=== PATIENT | male | born 1990 | race African-American/Black ===

== ENCOUNTER 2020-03-16 06:44 | Inpatient (IN) ==
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
[~2020-03-16 06:44] MED LIST: BUPIVACAINE 0.5 % 5 MG/1 ML MPF 30ML VIAL ONE; CEFAZOLIN 2000MG 2,000 MG/15 ML SYR IV SCH; LACTATED RINGER'S 1,000 ML IV SCH
[2020-03-16] MEDS ORDERED: MIDAZOLAM HCL 1 MG/ML 2ML VIAL ONE ×2 (09:17→10:00)
[2020-03-16] MEDS ORDERED: LIDOCAINE HCL 2% 2 ML VIAL/AMP(20MG/ML) INFIL ONE (09:17)
[2020-03-16] MEDS ORDERED: fentaNYL citrate 100 MCG/2 ML VIAL ONE ×4 (09:17→11:33)
[2020-03-16] MEDS ORDERED: PROPOFOL IV EMULSION 10 MG/ML 20 ML VIAL IV ONE (09:17)
[2020-03-16] MEDS ORDERED: ONDANSETRON INJ 2 MG/ML 2 ML VIAL ONE (09:17)
[2020-03-16] MEDS ORDERED: BUPIVACAINE 0.5 % 5 MG/1 ML MPF 30ML VIAL ONE (10:18)
[2020-03-16] MEDS ORDERED: LIDOCAINE HCL 1% 20 ML VIAL ONE (10:19)
[2020-03-16] MEDS ORDERED: BACITRACIN INJ 50,000 UNIT VIAL ONE ×2 (10:19→11:19)
[2020-03-16] MEDS ORDERED: GENTAMICIN SULFATE 40 MG/ML 2 ML VIAL ONE (10:22)
[2020-03-16] MEDS ORDERED: VANCOMYCIN HCL 1000MG/20ML VIAL ONE (10:23)
--- NOTE | 2020-03-16 10:26 | History & Physical Bridge Note ---
Date of Service March 16, 2020 History & Physical Bridge Note I have examined the patient, reviewed the History & Physical and in the interval since the performance of the History & Physical I have noted the following changes of clinical significance: no changes noted
[2020-03-16] MEDS ORDERED: METOCLOPRAMIDE HCL INJ 5 MG/ML 2 ML VIAL IV PRN ×2 (10:27→13:22)
[2020-03-16] MEDS ORDERED: ONDANSETRON INJ 2 MG/ML 2 ML VIAL IV PRN ×2 (10:27→13:22)
[2020-03-16] MEDS ORDERED: HYDROmorphone INJ 2 MG/ML SYR/VIAL IV PRN (10:27)
[2020-03-16] MEDS ORDERED: ATROPINE SULFATE 0.1 MG/ML 10ML SYR IV PRN (10:27)
[2020-03-16] MEDS ORDERED: ePHEDrine sulfate 50 MG/ML AMP IV PRN (10:27)
[2020-03-16] MEDS ORDERED: PROMETHAZINE HCL 12.5 MG in SODIUM CHLORIDE 0.9% 50 ML IV PRN (10:27)
[2020-03-16] MEDS ORDERED: TRANEXAMIC ACID / 0.7% NACL 1000MG/100ML BAG IV ONE (12:29)
--- NOTE | 2020-03-16 12:51 | Fluoroscopy Report ---
FL tibia/fibula RT 2V CLINICAL HISTORY: RIGHT TIB FIB HARDWARE REMOVAL COMPARISON STUDY: 02/09/2020 FLUOROSCOPY TIME: 4 seconds. NUMBER OF FLUOROSCOPIC IMAGES: 3 FINDINGS: There is been interval removal of the tibial plate and screws. There are multiple metallic fragments projected over the proximal tibia fibula likely representing trapped of fragments. IMPRESSION: Interval removal of the tibial hardware. ACT 112: Negative or not required by law. Electronically signed by: Manolo Chaudhry M.D. 03/16/2020 12:49 PM
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
[2020-03-16] MEDS ORDERED: DiphenhydrAMINE HCL 50 MG/ML VIAL IV PRN (13:22)
[2020-03-16] MEDS ORDERED: NALOXONE HCL 0.4 MG/1 ML VIAL/CARP IV PRN (13:22)
[2020-03-16] MEDS ORDERED: TAMSULOSIN HCL 0.4 MG CAP PO PRN (13:22)
[2020-03-16] MEDS ORDERED: MAGNESIUM HYDROXIDE SUSP 30 ML UDC PO PRN (13:22)
[2020-03-16] MEDS ORDERED: VANCOMYCIN CONSULT ACTIVE PRN ×2 (13:22→15:51)
[2020-03-16] MEDS ORDERED: bisacodyL 10 MG SUPP PR PRN (13:22)
--- NOTE | 2020-03-16 13:22 | Operative Report ---
Post Operative Report Pre & Post Diagnosis Operation Date: 03/16/20 08:50 Pre-Op Diagnosis: Right Tibia Osteomyelitis Post-Op Diagnosis: Right Tibia Osteomyelitis I identified the patient and participated in the time-out.: Yes Procedure Operation Date: 03/16/20 08:50 Actual Procedures p Right Tibia Hardware Removal(Right) - Alvin Cardoza MD s Irrigation and Debridement, Application of Stimulan Beads(Right) - Alvin Cardoza MD Surgeon Alvin Cardoza M.D. Shuttleless Loom Weaver Priscila Dumont PA-C and Fernando Covarrubias, geovanna fellow available Estimated Blood Loss 25 Findings Consistent with Post-Op Diagnosis Specimens Soft tissue; hardware Drains None Anesthesia Type General Regional Complications none Description of Procedure Patient was taken to the operating room, placed under general anesthesia. given peripheral nerve block prior to procedure. Time out performed, prepped and draped in routine sterile fashion. I was present during the entire case, please see Dr. Cardoza's operative report for further detail. I assisted with positioning, tissue retraction, hardware removal, closure and dressings. Patient was awakened and taken to the recovery room in stable condition. I attest to the content of the Intraoperative Record and any orders documented therein. Any exceptions are noted below.
[2020-03-16] MEDS: fentaNYL citrate 100 MCG/2 ML VIAL IV PRN ×2 (13:51→14:00)
--- NOTE | 2020-03-16 14:20 | Anesthesiology Progress Note ---
Date of Service March 16, 2020 Anesthesia Post Procedure Vital Signs Vital Signs: Temp Pulse Resp BP BP Pulse Ox 03/16/20 14:15 61 16 161/94 H 98 03/16/20 14:05 65 16 180/86 H 100 03/16/20 13:55 36.7 C 52 L 16 168/87 H 100 03/16/20 13:45 72 16 159/105 H 100 03/16/20 13:35 82 16 155/92 H 100 03/16/20 13:25 65 16 129/80 100 03/16/20 13:19 36.4 C L 67 16 138/92 100 03/16/20 07:57 70 20 151/98 H 99 03/16/20 07:16 36.9 C 62 16 152/90 H 99 Pain Intensity Right Knee: Pain Intensity: 7 Transfer of Care Handoff Completed per policy Notes Mental Status: alert / awake / arousable and participated in evaluation Patient Amnestic to Procedure: Yes Nausea / Vomiting: adequately controlled Pain: adequately controlled Airway Patency, RR, SpO2: stable & adequate BP & HR: stable & adequate Hydration State: stable & adequate Anesthetic Complications: no major complications apparent
[2020-03-16] MEDS: SODIUM CHLORIDE 0.9% 1000ML 1,000 ML IV SCH ×2 (15:05→23:53)
[2020-03-16] MEDS ORDERED: PIPERACILLIN/TAZOBACTAM 3.375 GM in DEXTROSE 5% 100 ML IV ONE (15:45)
[2020-03-16] MEDS ORDERED: VANCOMYCIN HCL 1,250 MG in SODIUM CHLORIDE 0.9% 250 ML IV STA (15:49)
[2020-03-16] MEDS ORDERED: PIPERACILL/TAZOBAC CONSULT ACTIVE PRN (15:51)
[2020-03-16] MEDS: ACETAMINOPHEN 500 MG TAB PO SCH ×2 (16:05→23:54)
[2020-03-16] MEDS: OXYCODONE HCL IR 5 MG TAB (IMMEDIATE RELEASE) PO PRN ×2 (16:07→20:39)
[2020-03-16 16:15] LABS: Creatinine Clr Calc Pharmacy 87.1 ml/min; Est GFR (African American) 82.1; Est GFR (Non-African American) 70.8
[2020-03-16] MEDS: HYDROmorphone INJ 0.5 MG/0.5 ML SYR IV PRN ×2 (16:24→23:59)
--- NOTE | 2020-03-16 16:41 | Pharmacy Report ---
Pharmacy Abx Initial Consult - Date of Service March 16, 2020 - Pharmacy Dosing Scope Date of Consult: 03/16/20 Consultation requested by: Dr. Cardoza Pharmacy is consulted to initiate Vancomycin and Zosyn IV dosing therapy, order appropriate labs and adjust drug dose/frequency. - Subjective The patient is a 29 year old M admitted on 03/16/20 13:22. - Objective Height: 5 ft 7 in Weight: 89.613 kg Vital Signs (Past 12hrs): Vital Signs Temp Pulse Resp BP BP Pulse Ox 03/16/20 15:47 36.4 C L 91 H 16 159/89 H 100 03/16/20 15:19 36.5 C 82 16 166/83 H 100 03/16/20 14:44 36.9 C 62 16 157/94 H 99 03/16/20 14:30 36.5 C 69 16 159/89 H 100 03/16/20 14:15 61 16 161/94 H 98 03/16/20 14:05 65 16 180/86 H 100 03/16/20 13:55 36.7 C 52 L 16 168/87 H 100 03/16/20 13:45 72 16 159/105 H 100 03/16/20 13:35 82 16 155/92 H 100 03/16/20 13:25 65 16 129/80 100 03/16/20 13:19 36.4 C L 67 16 138/92 100 03/16/20 07:57 70 20 151/98 H 99 03/16/20 07:16 36.9 C 62 16 152/90 H 99 Lab Results (24hrs): Laboratory Tests (24 Hours) 03/16/20 15:48 Creatinine 1.36 Est Cr Clr Drug Dosing 87.1 Micro Results: 03/16/20 Unknown Gram Stain - Final Leg,Right Aerobic and Anaerobic Culture - Pending 03/16/20 Unknown Gram Stain - Final Leg,Right Aerobic and Anaerobic Culture - Pending 03/16/20 Unknown Gram Stain - Final Leg,Right Aerobic and Anaerobic Culture - Pending - Risk Factors for Resistance * Resident in a chcf or extended-care facility -> incarcerated at [facility] * Antimicrobial use within the last 90 days -> per H&P, patient has been on/off antibiotics, but unclear which ones - Assessment & Plan Assessment 29 year old M on empiric IV Vancomycin and Zosyn for R tibia osteomyelitis s/p hardware removal today * No renal impairment noted. Most recent sCr = 1.36 mg/dL with estimated CrCl ~87 mL/min * Patient received Vancomycin 1000mg (~11 mg/kg) IV x 1 in the OR; this is lower than usual recommended 25 mg/kg loading dose. Therefore, will give an additional loading dose prior to starting maintenance regimen * R leg cultures pending * Patient meets criteria for vancomycin AUC dosing nomogram * AUC/YESIKA is the preferred PK/PD target for vancomycin * Target AUC/YESIKA = 400-600 * AUC guided dosing is effective and associated with decreased risk of nephrotoxicity Plan Vancomycin IV * Estimated PK Parameters: Vd 62.72 L/kg, Remigio 0.077 hr-1, t1/2 9 hr * Loading dose: additional 1250 mg (~14 mg/kg) IV x 1 to equal loading dose of 25 mg/kg * Maintenance dose: 1000 mg IV (~11 mg/kg) every 8 hours * Goal trough level for osteomyelitis : 15 to 20 mcg/mL * Trough level ordered for 03/18/20 @ 0730 (prior to 5th dose and therefore should be reflective of steady state) Piperacillin/tazobactam * 3.375 g bolus administered over 30 minutes, then 3.375 g IV extended infusion every 8 hours for CrCl greater than 20 mL/min Pharmacy will continue to follow and will adjust dose/frequency as necessary. Thank you.
[2020-03-16] MEDS: TRAMADOL HCL 50 MG TABLET PO PRN ×2 (18:46→22:48)
--- NOTE | 2020-03-16 19:32 | Progress Notes ---
DATE: 03/16/2020 Resting comfortably in bed. There is some oozing from his proximal portion of the dressing. This will be reinforced. He is educated about what we saw at the time of surgery and what the results are. We talked about ID consult and PICC line. He will be nonweightbearing with crutches. Follow up on cultures. Continue IV antibiotics. Dorsalis pedis is 1+. Sensation is intact throughout the foot, although I get a sense that he still has some nerve block working. His ankle and toe plantar flexion, dorsiflexion is 4+ to 5-/5 as is the inversion and eversion.
[2020-03-16] MEDS ORDERED: VANCOMYCIN HCL 1,250 MG in SODIUM CHLORIDE 0.9% 250 ML IV SCH (20:00)
[2020-03-16] MEDS: PIPERACILLIN/TAZOBACTAM 3.375 GM in DEXTROSE 5% 100 ML IV SCH (20:20)
[2020-03-16] MEDS: DOCUSATE SODIUM 100 MG CAP PO SCH (20:27)
[2020-03-16] MEDS: SENNA 8.6 MG TAB PO SCH (20:27)
[2020-03-16] MEDS: VANCOMYCIN HCL 1,000 MG in SODIUM CHLORIDE 0.9% 250 ML IV SCH (23:59)
[2020-03-17] MEDS: OXYCODONE HCL IR 5 MG TAB (IMMEDIATE RELEASE) PO PRN ×4 (02:25→20:22)
[2020-03-17] MEDS: PIPERACILLIN/TAZOBACTAM 3.375 GM in DEXTROSE 5% 100 ML IV SCH ×2 (03:46→11:56)
[2020-03-17 05:48] LABS: Hemoglobin 14.3 g/dL (14.0-18.0); Mean Corpuscular Hemoglobin 29.9 pg (25-34); Mean Corpuscular Hgb Conc 34.9 g/dL (32-36); Mean Corpuscular Volume 85.8 fL (80-100); Mean Platelet Volume 9.1 fL (7.4-10.4); Platelet Count 316 K/uL (130-400); RDW Coefficient of Variation 12.1 % (11.5-14.5); RDW Standard Deviation 38.1 fL (36.4-46.3); Red Blood Count 4.78 M/uL (4.7-6.1); White Blood Count 7.41 K/uL (4.8-10.8)
[2020-03-17 06:14] LABS: BUN Creatinine Ratio 6.8 (10-20); Calcium 8.6 mg/dl (8.5-10.1); Creatinine Clr Calc Pharmacy 83.5 ml/min; Est GFR (African American) 77.9; Est GFR (Non-African American) 67.2; Potassium 3.5 mmol/L (3.5-5.1)
[2020-03-17] MEDS: ACETAMINOPHEN 500 MG TAB PO SCH ×3 (07:51→23:57)
[2020-03-17] MEDS: DOCUSATE SODIUM 100 MG CAP PO SCH ×2 (07:51→20:21)
[2020-03-17] MEDS: MULTIVITAMIN TAB PO SCH (07:52)
[2020-03-17] MEDS: ASPIRIN 325 MG ECTAB PO SCH ×2 (07:52→20:22)
--- NOTE | 2020-03-17 08:00 | Anesthesiology Progress Note ---
Date of Service March 17, 2020 Anesthesia Post Procedure Vital Signs Vital Signs: Temp Pulse Resp BP Pulse Ox 03/17/20 03:37 36.9 C 76 18 144/97 H 96 03/16/20 23:50 36.9 C 63 18 145/92 H 98 03/16/20 17:50 36.7 C 82 18 146/84 H 99 03/16/20 16:46 36.8 C 94 H 18 159/88 H 99 03/16/20 15:47 36.4 C L 91 H 16 159/89 H 100 03/16/20 15:19 36.5 C 82 16 166/83 H 100 03/16/20 14:44 36.9 C 62 16 157/94 H 99 03/16/20 14:30 36.5 C 69 16 159/89 H 100 03/16/20 14:15 61 16 161/94 H 98 03/16/20 14:05 65 16 180/86 H 100 03/16/20 13:55 36.7 C 52 L 16 168/87 H 100 03/16/20 13:45 72 16 159/105 H 100 03/16/20 13:35 82 16 155/92 H 100 03/16/20 13:25 65 16 129/80 100 03/16/20 13:19 36.4 C L 67 16 138/92 100 Notes Mental Status: alert / awake / arousable Patient Amnestic to Procedure: Yes Nausea / Vomiting: adequately controlled Pain: adequately controlled Airway Patency, RR, SpO2: stable & adequate BP & HR: stable & adequate Hydration State: stable & adequate Anesthetic Complications: no major complications apparent and Pt Satisfied with anesthetic care
[2020-03-17] MEDS: VANCOMYCIN HCL 1,000 MG in SODIUM CHLORIDE 0.9% 250 ML IV SCH ×3 (09:38→23:57)
[2020-03-17] MEDS ORDERED: DiphenhydrAMINE HCL 50 MG/ML VIAL IV PRN (10:36)
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
--- NOTE | 2020-03-17 11:00 | Progress Notes ---
DATE: 03/17/2020 Some itching. Kiana recommended. Pain in the right leg. Dressing reinforced overnight. Otherwise, no problems. I spoke with infectious diseases and gave them some background information on his telehealth visit today. He is afebrile and his vital signs are stable, but his blood pressure has been consistently elevated. We will go ahead consult medicine to please evaluate that. His labs are noted. His creatinine bumped up a little bit. We will continue IV hydration and will recheck this tomorrow. Discussed insertion of PICC line. Informed consent was obtained. The dressing was changed. There was some oozing present. Wounds well approximated. No dehiscence. Posterior tibial nonpalpable, but he has a 2+ dorsalis pedis pulse. He does not have a good quad contraction and reports some numbness on the medial side of the knee and leg. He has decreased sensation on the plantar aspect of the foot, but normal sensation otherwise, throughout the foot and he has a 5-5 minus/5 strength on dorsiflexion and plantarflexion of ankle and toes as well as inversion and eversion. He cannot do a straight leg raise. A new dressing is applied. He has a chronic osteomyelitis of the right tibia, status post hardware removal and irrigation and debridement. Gram stains are negative. Cultures are pending. We will follow up on the cultures. Continue broad spectrum antibiotics. Aspirin for DVT prophylaxis. Aspirin will start today.
[2020-03-17] MEDS ORDERED: FUROSEMIDE 10 MG in SYRINGE 0 ML IV ONE (11:30)
[2020-03-17] MEDS: cefTRIAXone SODIUM 2,000 MG in DEXTROSE 5% 50 ML IV SCH (20:21)
[2020-03-17] MEDS: SENNA 8.6 MG TAB PO SCH (20:22)
[2020-03-17] MEDS: TRAMADOL HCL 50 MG TABLET PO PRN (23:58)
[2020-03-18] MEDS: OXYCODONE HCL IR 5 MG TAB (IMMEDIATE RELEASE) PO PRN ×3 (07:13→22:24)
[2020-03-18] MEDS ORDERED: VANCOMYCIN TROUGH ONE (07:30)
[2020-03-18] MEDS: ACETAMINOPHEN 500 MG TAB PO SCH ×3 (07:54→23:39)
[2020-03-18] MEDS: VANCOMYCIN HCL 1,000 MG in SODIUM CHLORIDE 0.9% 250 ML IV SCH (07:54)
[2020-03-18] MEDS: ASPIRIN 325 MG ECTAB PO SCH ×2 (07:55→20:26)
[2020-03-18] MEDS: MULTIVITAMIN TAB PO SCH (07:55)
[2020-03-18] MEDS ORDERED: HydrALAZINE HCL 20 MG/ML VIAL IV STA (08:10)
[2020-03-18 08:37] LABS: BUN Creatinine Ratio 7.3 (10-20); Calcium 9.3 mg/dl (8.5-10.1); Creatinine Clr Calc Pharmacy 97.9 ml/min; Est GFR (African American) 94.5; Est GFR (Non-African American) 81.6; Potassium 3.7 mmol/L (3.5-5.1)
[2020-03-18] MEDS: DOCUSATE SODIUM 100 MG CAP PO SCH ×2 (09:14→20:25)
--- NOTE | 2020-03-18 09:29 | Pharmacy Report ---
Pharmacy Abx Dose Short Note - Date of Service March 18, 2020 - Assessment & Plan Assessment 29 year old M receiving vancomycin and Rocephin for treatment of osteomyelitis Day # 3 of antimicrobial therapy. Plan Vancomycin * Trough level of 13.9 mcg/mL is subtherapeutic * Change to 1250 mg IV every 8 hours (start 2 hours early as trough subtherapeutic) * Goal trough level for osteomyelitis : 15 to 20 mcg/mL * Trough ordered for: 03/19/20 prior to 0600 dose which will be prior to steady state but important to ensure no accumulation Pharmacy will continue to follow and will adjust dose/frequency as necessary. Thank you.
--- NOTE | 2020-03-18 10:16 | Hospitalist Progress Note ---
Date of Service March 18, 2020 Assessment & Plan (1) Osteomyelitis of right tibia: * POD #2 s/p RIGHT tibia hardware removal and placement of stimulant beads with Dr. Cardoza. EBL 25cc. * PT/OT/pain management/DVT prophylaxis per primary service * Cultures with serratia marcescens, sensitive to Ceftriaxone --> continue vanco/ceftriaxone per primary service and follow cultures * PICC line in place * Infectious disease on consult * CBC in AM (2) Hypertension: * Post-operatively although suspect has been elevated. Had been given dose of Lasix 10mg x 1 03/17 * Hydralazine 10mg x 1 this morning ordered for BP 157/101 with reduction to 142/78 * BP back up to 157/92 -- will also order amlodipine 5mg PO and likely need to increase to 10mg based on response. Could also consider low dose HCTZ or chlorthalidone * Hydralazine prn SBP >180 or DBP >100 * Continue to monitor (3) Elevated serum creatinine: * Elevated to 1.42 on 03/17 from 1.36, although unclear baseline --> had been on IVF, since discontinued * Cr down to 1.21 on AM labs * Monitor on AM labs (4) DVT prophylaxis: * ASA 325mg BID per primary service Thank you for allowing hospitalist team to participate in the care of Mr. Snyder. Hospitalist service will follow along. Admission and Anticipated Discharge Date Admission Date: March 16, 2020 Supervising Physician Co-Signing Physician Notes Attending attestation - chart reviewed, care plan d/w PENNY Styles. I agree w/ the patel components of her documentation. Je Hayden MD Subjective Patient evaluated this morning. Resting comfortably in bed eating vietnamese ice although he does not pain currently rated 7/10. Has been eating/drinking without issue. Passing gas and had a bowel movement this morning although he still feels like he has to go here shortly. Typically goes 2x/day. Discussed return to normal of his creatinine although blood pressures remain elevated. Denies headache, visual changes, chest pain, shortness of breath, nausea, dysuria at this time. Discussed addition of amlodipine for blood pressure and will continue to monitor with hopeful discharge in the next day or two. Review of Systems Review of Systems: All systems reviewed & are unremarkable except as noted in HPI & below Physical Exam Constitutional: WD/WN, vitals as above no acute distress Eyes: + anicteric sclerae and PERRL Neck: normal visual inspection Respiratory: normal respiratory effort and able to speak in complete sentences; no labored breathing Auscultation: lungs clear to auscultation bilaterally and + crackles (faint bibasilar crackles) Cardiovascular: Rate/Rhythm: regular rhythm and + tachycardic Vessels: no JVD Extremities: + edema (RLE); no calf tenderness Gastrointestinal (Abdomen): normal bowel sounds, soft, nontender, no hepatosplenomegaly Musculoskeletal: dressing to RIGHT leg c/d/i 5/5 dorsiflexion/plantarflexion NVI 2+ dp pulses Calves non-tender Skin: warm, dry PICC line c/d/i Neurologic: PERRL, EOMI, accommodation nl, no face palsy, no dysarthria Psychiatric: A+Ox3, euthymic affect Lymphatic: no cervical or axillary lymphadenopathy Results & Data Results & Data ([facility]) Vital Signs (Past 12 Hours) Vital Signs Temp Pulse Resp BP Pulse Ox 03/18/20 09:14 94 H 150/90 H 03/18/20 07:00 37.1 C 89 18 157/101 H 95 03/17/20 23:07 37.4 C 82 16 154/104 H 97 Laboratory Results 03/18/20 03/18/20 Range/Units 07:48 07:48 Sodium 135 L (136-145) mmol/L Potassium 3.7 (3.5-5.1) mmol/L Chloride 102 (98-107) mmol/L Carbon Dioxide 28 (21-32) mmol/L Anion Gap 5.0 (3-11) BUN 9 (7-18) mg/dl Creatinine 1.21 (0.6-1.4) mg/dl Est Cr Clr Drug Dosing 97.9 ml/min Est GFR ( Amer) 94.5 Est GFR (Non-Af Amer) 81.6 BUN/Creatinine Ratio 7.3 L (10-20) Glucose 77 (70-99) mg/dl Calcium 9.3 (8.5-10.1) mg/dl Vancomycin Trough 13.9 (See Comment) mcg/ml PG Care Time/CCT Total # of Minutes Spent Total Time Spent with Patient: Total time spent is greater than 50% in coordination of care (as documented) at patient's floor/unit and/or counseling patient: Coding Level of Care Code 06747 Subseq Hosp Care Lvl 2 Diagnoses Osteomyelitis of right tibia M86.9 Hypertension I10 Elevated serum creatinine R79.89 DVT prophylaxis Z29.9
--- NOTE | 2020-03-18 10:59 | Orthopedic Progress Note ---
Date of Service March 18, 2020 Assessment & Plan Admission and Anticipated Discharge Date Admission Date: March 16, 2020 Appreciate ID input. Aspirin for DVT prophylaxis. PICC line is inserted. He has been up with PT. Cultures are growing out Serratia marcescens at this point sensitive to ceftriaxone. Will likely reassess tomorrow to make sure that no other organisms popup. For the time being PT, range of motion. Continue IV antibiotics and pain control. Pain is well controlled. Appreciate medicine input for management of his blood pressure. Subjective Doing well. Pain controlled. Numbness resolved. Physical Exam Physical Exam: Dorsalis pedis 2+. He can do a straight leg raise and bend his knee to about 90 degrees. Active knee extension intact. He has 5 out of 5 ankle and toe plantarflexion dorsiflexion inversion and eversion strength. There is normal sensation of the foot the dressing is clean and dry. Results & Data ([facility]) Vital Signs (Past 12 Hours) Vital Signs Temp Pulse Resp BP Pulse Ox 03/18/20 10:26 94 H 142/78 H 03/18/20 09:14 94 H 150/90 H 03/18/20 07:00 37.1 C 89 18 157/101 H 95 03/17/20 23:07 37.4 C 82 16 154/104 H 97
[2020-03-18] MEDS ORDERED: AMLODIPINE BESYLATE 5 MG TAB PO SCH (11:15)
[2020-03-18] MEDS: VANCOMYCIN HCL 1,250 MG in SODIUM CHLORIDE 0.9% 250 ML IV SCH ×2 (13:14→22:25)
[2020-03-18 14:23] LABS: Appearance Urine Clear (Clear); Bilirubin Urine Negative (Negative); Blood Urine Negative (Negative); Color Urine Yellow; Glucose Urine UA Negative (Negative); Ketones Urine Negative (Negative); Leukocyte Esterase Urine Negative (Negative); Nitrite Urine Negative (Negative); Protein Urine Negative (Negative); Specific Gravity Urine 1.015 (1.000-1.030); Urobilinogen Urine Negative (Negative); pH Urine 6.5 (4.5-7.5)
[2020-03-18] MEDS: cefTRIAXone SODIUM 2,000 MG in DEXTROSE 5% 50 ML IV SCH (19:35)
[2020-03-18] MEDS: SENNA 8.6 MG TAB PO SCH (20:25)
[2020-03-18] MEDS: TRAMADOL HCL 50 MG TABLET PO PRN (23:39)
[2020-03-19] MEDS ORDERED: VANCOMYCIN TROUGH ONE (05:30)
[2020-03-19 05:49] LABS: Basophils # (auto) 0.01 K/uL (0-0.2); Basophils % (auto) 0.2 %; Hematocrit (blood only) 42.8 % (42-52); Hemoglobin 14.9 g/dL (14.0-18.0); Immature Granulocytes # (auto) 0.02 K/uL (0.00-0.02); Immature Granulocytes % (auto) 0.3 %; Lymphocytes # (auto) 1.33 K/uL (1.2-3.4); Mean Corpuscular Hemoglobin 29.6 pg (25-34); Mean Corpuscular Hgb Conc 34.8 g/dL (32-36); Mean Corpuscular Volume 84.9 fL (80-100); Mean Platelet Volume 9.3 fL (7.4-10.4); Monocytes # (auto) 1.07 K/uL (0.11-0.59); Monocytes % (auto) 17.7 %; Neutrophils # (auto) 3.31 K/uL (1.4-6.5); Neutrophils % (auto) 54.8 %; Platelet Count 309 K/uL (130-400); RDW Coefficient of Variation 12.1 % (11.5-14.5); RDW Standard Deviation 37.4 fL (36.4-46.3); Red Blood Count 5.04 M/uL (4.7-6.1); White Blood Count 6.04 K/uL (4.8-10.8)
[2020-03-19] MEDS: OXYCODONE HCL IR 5 MG TAB (IMMEDIATE RELEASE) PO PRN ×2 (06:13→20:23)
[2020-03-19] MEDS: VANCOMYCIN HCL 1,250 MG in SODIUM CHLORIDE 0.9% 250 ML IV SCH ×3 (06:14→22:05)
[2020-03-19] MEDS ORDERED: HydrALAZINE HCL 20 MG/ML VIAL IV PRN (06:27)
[2020-03-19 06:36] LABS: BUN Creatinine Ratio 9.8 (10-20); Calcium 9.3 mg/dl (8.5-10.1); Creatinine Clr Calc Pharmacy 107.7 ml/min; Est GFR (African American) 106.1; Est GFR (Non-African American) 91.5; Potassium 4.1 mmol/L (3.5-5.1)
--- NOTE | 2020-03-19 07:34 | Pharmacy Report ---
Pharmacy Abx Dose Short Note - Date of Service March 19, 2020 - Assessment & Plan Assessment 29 year old M receiving vancomycin/Rocephin for treatment of osteomyelitis Day # 4 of antimicrobial therapy. Plan Vancomycin * Trough level of 15.3 mcg/mL is therapeutic. * Continue dose of 1250 mg IV every 8 hours * Goal trough level for osteomyelitis : 15 to 20 mcg/mL * Trough will be ordered based upon clinical picture. Pharmacy will continue to follow and will adjust dose/frequency as necessary. Thank you.
[2020-03-19] MEDS: AMLODIPINE BESYLATE 5 MG TAB PO SCH (08:08)
[2020-03-19] MEDS: ASPIRIN 325 MG ECTAB PO SCH ×2 (08:08→20:18)
[2020-03-19] MEDS: ACETAMINOPHEN 500 MG TAB PO SCH ×3 (08:08→23:41)
[2020-03-19] MEDS: MULTIVITAMIN TAB PO SCH (08:09)
[2020-03-19] MEDS: DOCUSATE SODIUM 100 MG CAP PO SCH ×2 (08:09→20:19)
--- NOTE | 2020-03-19 11:39 | Hospitalist Progress Note ---
Date of Service March 19, 2020 Assessment & Plan (1) Osteomyelitis of right tibia: * POD #2 s/p RIGHT tibia hardware removal and placement of stimulant beads with Dr. Cardoza. EBL 25cc. * PT/OT/pain management/DVT prophylaxis per primary service * Cultures with serratia marcescens, and coag negative staph--> continue vanco/ceftriaxone per primary service and follow cultures. Vanco trough therapeutic * PICC line in place * Infectious disease on consult * CBC stable (2) Hypertension: * Post-operatively although suspect has been elevated. Had been given dose of Lasix 10mg x 1 03/17 * BP back up to 166/102 this AM --> increased amlodipine to 10mg PO daily * --> Consider low dose HCTZ or chlorthalidone in combination if still elevated once pain under better control * Hydralazine prn SBP >180 or DBP >100 * Continue to monitor (3) Elevated serum creatinine: * Elevated to 1.42 on 03/17 from 1.36, although unclear baseline --> had been on IVF, since discontinued * Cr down to 1.10 on AM labs, stabe (4) DVT prophylaxis: * ASA 325mg BID per primary service Thank you for allowing hospitalist team to participate in the care of Mr. Snyder. Hospitalist service will follow along. Admission and Anticipated Discharge Date Admission Date: March 16, 2020 Supervising Physician Co-Signing Physician Notes Attending attestation - chart reviewed, care plan d/w PENNY Styles. I agree w/ the patel components of her documentation. Je Hayden MD Subjective Patient evaluated this morning. Pain better controlled than previous days but still with moderate pain, worsened with ambulation. Has not been up much except to use bathroom. Moving bowels move frequently and feeling better from that standpoint. Denies numbness/tingling. Discussed with nursing this morning and will attempt to get up and moving in the halls. Eating/drinking without difficulty. Voiding without issue, clear/yellow urine. Mother with history of hypertension. Discussed initiating amlodipine 10mg today and possible switch to combination product with a diuretic to prevent lower extremity edema. Denies fever, chills, chest pain, shortness of breath, abdominal pain, dysuria. Review of Systems Review of Systems: All systems reviewed & are unremarkable except as noted in HPI & below Physical Exam Constitutional: WD/WN, vitals as above no acute distress Eyes: + anicteric sclerae and PERRL Neck: normal visual inspection Respiratory: normal respiratory effort and able to speak in complete sentences; no labored breathing Auscultation: lungs clear to auscultation bilaterally and + crackles (faint bibasilar crackles) Cardiovascular: Rate/Rhythm: regular rhythm and + tachycardic Vessels: no JVD Extremities: + edema (RLE, minimal to LLE as well); no calf tenderness Gastrointestinal (Abdomen): normal bowel sounds, soft, nontender, no hepatosplenomegaly Musculoskeletal: dressing to RIGHT leg c/d/i -- able to straight leg and flexion at knee to 90 degrees 5/5 dorsiflexion/plantarflexion NVI 2+ dp pulses Calves non-tender to palpation Neurologic: PERRL, EOMI, accommodation nl, no face palsy, no dysarthria Psychiatric: A+Ox3, euthymic affect Lymphatic: no cervical or axillary lymphadenopathy Results & Data Results & Data ([facility]) Vital Signs (Past 12 Hours) Vital Signs Temp Pulse BP BP Pulse Ox 03/19/20 10:43 149/84 H 03/19/20 09:30 82 147/88 H 03/19/20 08:04 36.6 C 80 166/102 H 97 Laboratory Results 03/19/20 03/19/20 03/19/20 Range/Units 05:30 05:30 05:30 WBC 6.04 (4.8-10.8) K/uL RBC 5.04 (4.7-6.1) M/uL Hgb 14.9 (14.0-18.0) g/dL Hct 42.8 (42-52) % MCV 84.9 (80-100) fL MCH 29.6 (25-34) pg MCHC 34.8 (32-36) g/dL RDW Std Deviation 37.4 (36.4-46.3) fL RDW Coeff of Bala 12.1 (11.5-14.5) % Plt Count 309 (130-400) K/uL MPV 9.3 (7.4-10.4) fL Immature Gran % (Auto) 0.3 % Neut % (Auto) 54.8 % Lymph % (Auto) 22.0 % [place] % (Auto) 17.7 % Eos % (Auto) 5.0 % Baso % (Auto) 0.2 % Neut # (Auto) 3.31 (1.4-6.5) K/uL Lymph # (Auto) 1.33 (1.2-3.4) K/uL [place] # (Auto) 1.07 H (0.11-0.59) K/uL Eos # (Auto) 0.30 (0-0.5) K/uL Baso # (Auto) 0.01 (0-0.2) K/uL Immature Gran # (Auto) 0.02 (0.00-0.02) K/uL Sodium 137 (136-145) mmol/L Potassium 4.1 (3.5-5.1) mmol/L Chloride 102 (98-107) mmol/L Carbon Dioxide 31 (21-32) mmol/L Anion Gap 4.0 (3-11) BUN 11 (7-18) mg/dl Creatinine 1.10 (0.6-1.4) mg/dl Est Cr Clr Drug Dosing 107.7 ml/min Est GFR ( Amer) 106.1 Est GFR (Non-Af Amer) 91.5 BUN/Creatinine Ratio 9.8 L (10-20) Glucose 85 (70-99) mg/dl Calcium 9.3 (8.5-10.1) mg/dl Urine Color Urine Appearance (Clear) Urine pH (4.5-7.5) Ur Specific [place] (1.000-1.030) Urine Protein (Negative) Urine Glucose (UA) (Negative) Urine Ketones (Negative) Urine Blood (Negative) Urine Nitrite (Negative) Urine Bilirubin (Negative) Urine Urobilinogen (Negative) Ur Leukocyte Esterase (Negative) Vancomycin Trough 15.3 (See Comment) mcg/ml 03/18/20 Range/Units 14:15 WBC (4.8-10.8) K/uL RBC (4.7-6.1) M/uL Hgb (14.0-18.0) g/dL Hct (42-52) % MCV (80-100) fL MCH (25-34) pg MCHC (32-36) g/dL RDW Std Deviation (36.4-46.3) fL RDW Coeff of [place] (11.5-14.5) % Plt Count (130-400) K/uL MPV (7.4-10.4) fL Immature Gran % (Auto) % Neut % (Auto) % Lymph % (Auto) % [place] % (Auto) % Eos % (Auto) % Baso % (Auto) % Neut # (Auto) (1.4-6.5) K/uL Lymph # (Auto) (1.2-3.4) K/uL [place] # (Auto) (0.11-0.59) K/uL Eos # (Auto) (0-0.5) K/uL Baso # (Auto) (0-0.2) K/uL Immature Gran # (Auto) (0.00-0.02) K/uL Sodium (136-145) mmol/L Potassium (3.5-5.1) mmol/L Chloride (98-107) mmol/L Carbon Dioxide (21-32) mmol/L Anion Gap (3-11) BUN (7-18) mg/dl Creatinine (0.6-1.4) mg/dl Est Cr Clr Drug Dosing ml/min Est GFR ( Amer) Est GFR (Non-Af Amer) BUN/Creatinine Ratio (10-20) Glucose (70-99) mg/dl Calcium (8.5-10.1) mg/dl Urine Color Yellow Urine Appearance Clear (Clear) Urine pH 6.5 (4.5-7.5) Ur Specific [place] 1.015 (1.000-1.030) Urine Protein Negative (Negative) Urine Glucose (UA) Negative (Negative) Urine Ketones Negative (Negative) Urine Blood Negative (Negative) Urine Nitrite Negative (Negative) Urine Bilirubin Negative (Negative) Urine Urobilinogen Negative (Negative) Ur Leukocyte Esterase Negative (Negative) Vancomycin Trough (See Comment) mcg/ml PG Care Time/CCT Total # of Minutes Spent Total Time Spent with Patient: Total time spent is greater than 50% in coordination of care (as documented) at patient's floor/unit and/or counseling patient: Coding Level of Care Code 45042 Subseq Hosp Care Lvl 2 Diagnoses Osteomyelitis of right tibia M86.9 Hypertension I10 Elevated serum creatinine R79.89 DVT prophylaxis Z29.9
--- NOTE | 2020-03-19 15:58 | Progress Notes ---
DATE: 03/19/2020 Resting comfortably in bed. Pain well controlled. He has been afebrile. His vital signs have been stable with the exception of his elevated blood pressure. Remains slightly elevated. He is on amlodipine 10 mg. I spoke with Yessica Styles. Blood pressure acceptable for discharge. If necessary, the jail doctor can add HCTZ 12.5 mg daily. He is able to do a leg raise and bend his knee at least to 90 degrees. He has good movement of the ankle and toes. His distal neurovascular function is intact. Strength is intact in all planes. He has normal sensation and 1+ dorsalis pedis pulse. There is mild swelling of the right leg and a little bit of oozing from the wound. Dressing is changed. ASSESSMENT: Osteomyelitis of the right tibia status post I&D and hardware removal. His PICC line is in place. He has grown out Serratia marcescens, which is sensitive to ceftriaxone, and also he has grown out a coag-negative staph. No sensitivities to follow. Currently, on ceftriaxone and vancomycin. We will continue this and [facility] if [facility] have the antibiotic available. He is to be nonweightbearing on the right leg and is to keep his PICC line clean and dry. He could get the right leg wet, but he is not to bear weight on the right leg. Follow up in 2 weeks for wound check, possible suture removal. Use crutches. He will need a CBC, partial renal profile and a vancomycin trough every week. Target trough is between 15 and 20.
[2020-03-19] MEDS: cefTRIAXone SODIUM 2,000 MG in DEXTROSE 5% 50 ML IV SCH (20:06)
[2020-03-19] MEDS: SENNA 8.6 MG TAB PO SCH (20:19)
[2020-03-19] MEDS: TRAMADOL HCL 50 MG TABLET PO PRN (22:29)
[2020-03-20] MEDS: VANCOMYCIN HCL 1,250 MG in SODIUM CHLORIDE 0.9% 250 ML IV SCH ×2 (05:34→13:58)
[2020-03-20 06:40] LABS: Creatinine Clr Calc Pharmacy 118.5 ml/min; Est GFR (Non-African American) 102.7
[2020-03-20] MEDS: MULTIVITAMIN TAB PO SCH (08:25)
[2020-03-20] MEDS: ACETAMINOPHEN 500 MG TAB PO SCH ×2 (08:25→16:15)
[2020-03-20] MEDS: AMLODIPINE BESYLATE 5 MG TAB PO SCH (08:25)
[2020-03-20] MEDS: DOCUSATE SODIUM 100 MG CAP PO SCH (08:27)
[2020-03-20] MEDS ORDERED: hydroCHLOROthiazide 25 MG TAB PO SCH (09:00)
--- NOTE | 2020-03-20 09:15 | Hospitalist Progress Note ---
Date of Service March 20, 2020 Assessment & Plan (1) Osteomyelitis of right tibia: * POD #3 s/p RIGHT tibia hardware removal and placement of stimulant beads with Dr. Cardoza. EBL 25cc. * PT/OT/pain management/DVT prophylaxis per primary service * Cultures with serratia marcescens, and coag negative staph--> continue vanco/ceftriaxone per primary service and follow cultures. Vanco trough therapeutic * PICC line in place to LUE * Infectious disease on consult * h/h stable (2) Hypertension: * Post-operatively although suspect has been elevated. Had been given dose of Lasix 10mg x 1 03/17 * BP with DBP >100 overnight and did receive dose of hydralazine. Continue prn * Initiated HCTZ 12.5mg PO this AM and VS changed to Q4H - may need low dose potassium if repeat labs show hypokalemia * Renal Artery US given family history to make sure no stenosis as cause of continued HTN * BP 159/84 * Continue to monitor (3) Elevated serum creatinine: * Elevated to 1.42 on 03/17 from 1.36, although unclear baseline --> had been on IVF, since discontinued * Cr down to 1 on AM labs, stable (4) DVT prophylaxis: * ASA 325mg BID per primary service Thank you for allowing hospitalist team to participate in the care of Mr. Snyder. Hospitalist service will follow along. Admission and Anticipated Discharge Date Admission Date: March 16, 2020 Subjective Patient evaluated this morning. Slight nausea this morning and requesting antiemetic. No vomiting. Did have a little bit of a headache overnight but is improving. No blurred vision. Pain increased to RLE with ambulation but he did walk the [place] a little bit last evening. Would like something more for pain control at discretion of primary service. Discussed getting better control of his blood pressure but that if it continues to remain elevated he may want to consider a renal ultrasound to evaluate his renal arteries. Eating/drinking without difficulty. Continues to move his bowels. States urine clear and normal amount. Denies fever, chills, chest pain, shortness of breath, abdominal pain. Review of Systems Review of Systems: All systems reviewed & are unremarkable except as noted in HPI & below Physical Exam Constitutional: WD/WN, vitals as above no acute distress Eyes: + anicteric sclerae and PERRL Neck: normal visual inspection Respiratory: normal respiratory effort and able to speak in complete sentence s; no labored breathing Auscultation: lungs clear to auscultation bilaterally; no crackles Cardiovascular: Rate/Rhythm: regular rhythm and + tachycardic Vessels: no JVD Extremities: + edema (RLE, minimal to LLE as well) Gastrointestinal (Abdomen): normal bowel sounds, soft, nontender, no hepatosplenomegaly Musculoskeletal: dressing to RIGHT leg c/d/i -- able to straight leg and flexion at knee to 90 degrees 5/5 dorsiflexion/plantarflexion NVI 2+ dp pulses Minimal tenderness to palpation R calf SCD to LLE Skin: PICC to LUE Neurologic: PERRL, EOMI, accommodation nl, no face palsy, no dysarthria Psychiatric: A+Ox3, euthymic affect Lymphatic: no cervical or axillary lymphadenopathy Results & Data Results & Data ([facility]) Vital Signs (Past 12 Hours) Vital Signs Temp Pulse Resp BP BP Pulse Ox 03/20/20 08:10 36.6 C 71 18 159/84 H 98 03/20/20 02:19 36.6 C 72 16 138/81 99 03/19/20 22:50 36.7 C 78 16 139/100 98 Laboratory Results 03/20/20 Range/Units 05:15 Creatinine 1.00 (0.6-1.4) mg/dl Est Cr Clr Drug Dosing 118.5 ml/min Est GFR ( Amer) 119.0 Est GFR (Non-Af Amer) 102.7 PG Care Time/CCT Total # of Minutes Spent Total Time Spent with Patient: Total time spent is greater than 50% in coordination of care (as documented) at patient's floor/unit and/or counseling patient: Coding Level of Care Code 36937 Subseq Hosp Care Lvl 2 Diagnoses Osteomyelitis of right tibia M86.9 Hypertension I10 Elevated serum creatinine R79.89 DVT prophylaxis Z29.9
[2020-03-20] MEDS: ASPIRIN 325 MG ECTAB PO SCH (09:28)
--- NOTE | 2020-03-20 10:20 | Ultrasound Report ---
DOPPLER ULTRASOUND OF THE RENAL ARTERIES CLINICAL HISTORY: Hypertension. COMPARISON STUDY: No priors. TECHNIQUE: Doppler sonography of the renal arteries was performed to assess renal artery stenosis. Im ages are reviewed in the transverse and longitudinal planes. FINDINGS: The kidneys appear normal in size and echotexture. Right kidney measures 10.2 cm in length and the le ft kidney measures 11.2 cm in length. There is no hydronephrosis. On the right, intrarenal arterial resistive indices range from 0.51 to 0.63. Intrarenal arterial wave forms are normal with brisk upstrokes. The right renal arterial waveform is normal, and velocities wi thin the right renal artery measure up to 126 cm/sec. The right renal vein is patent. On the left, intrarenal arterial resistive indices range from 0.54 to 0.58. Intrarenal arterial wave forms are normal with brisk upstrokes. The left renal arterial waveform is normal, and velocities wit hin the left renal artery measure up to 93 cm/sec. The left renal vein is patent. The abdominal aorta is patent. Velocities within the abdominal aorta measure up to 140 cm/s. IMPRESSION: There is no sonographic evidence of renal artery stenosis. ACT 112: Negative or not required by law. Electronically signed by: Franklin Hairston M.D. 03/20/2020 10:19 AM
--- NOTE | 2020-03-20 14:49 | Progress Notes ---
DATE: 03/20/2020 The patient was seen and evaluated. Blood pressure remains a little bit high. Renal ultrasound was negative. At this time, he is stable for discharge. We will recommend that they continue to monitor his blood pressure at the correctional facility.
[2020-03-20] MEDS: OXYCODONE HCL IR 5 MG TAB (IMMEDIATE RELEASE) PO PRN (16:14)
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
--- NOTE | 2020-03-26 09:51 | Coding Query ---
DEBRIDEMENT DOCUMENTATION To promote full compliance with coding requirements relating to patient care, physician participation is requested in all cases of hat and cap sewer uncertainty. Please assist us with the question(s) below: Please place an X in the parenthesis (x). If other, please document the finding: Type of Debridement: ( x) Excisional Debridement- Cutting away necrotic, devitalized tissue or slough to the level of viable tissue using a sharp instrument (i.e. scalpel, scissors, etc.) ( ) Non Excisional Debridement- The removal of necrotic, devitalized tissue or slough by means of scraping, mechanical brushing, flushing, or washing (i.e. irrigation,whirlpool);minor removal of loose fragments. ( ) Other (please specify): Depth of Debridement: ( ) Skin ( ) Skin and Subcutaneous Tissue ( ) Skin, Subcutaneous Tissue and Muscle (x ) Skin, Subcutaneous Tissue, Muscle and Bone ( ) Other (please specify): Thank you Meka PAUL
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
== END 2020-03-20 16:48 | DRG 493 ==
LOC: ASU 06:44 → 3E 13:22